=== PATIENT | male | born 1995 | race Caucasian/White ===

== ENCOUNTER 2019-02-11 02:10 | Emergency (ER) | payer MEDICAID ==
[~2019-02-11] VITALS: Ht 193 cm; Wt 80.1 kg
[2019-02-11 02:12] VITALS: BP 151/91
--- NOTE | 2019-02-11 02:24 | NUR ---
PT. C/O SORE THROAT X DAYS AND DENTAL PAIN OFF/ON "FOR AWHILE". WILBER LUNSFORD IN TO EL PT. AND DISCUSS POC.
[2019-02-11] MEDS ORDERED: DEXAMETHASONE 4 MG TABLET ONE (02:56)
[2019-02-11] MEDS ORDERED: DEXAMETHASONE 4 MG TABLET PO ONE (03:00)
== END 2019-02-11 03:29 | disposition home or self-care (01) ==
LOC: ED 02:39
DX: J03.00 Acute streptococcal tonsillitis, unspecified (principal); K04.7 Periapical abscess without sinus; F15.10 Other stimulant abuse, uncomplicated; Z72.9 Problem related to lifestyle, unspecified; F17.210 Nicotine dependence, cigarettes, uncomplicated
CPT/HCPCS: 87880; 99283